=== PATIENT | male | born 1970 | race Hispanic/Latino ===

== ENCOUNTER 2023-03-26 08:32 | Outpatient (CLI) | payer BC, SELFPAY ==
--- NOTE | 2023-03-26 08:37 | EST_ITS ---
Patient Info Name: Gerson Aleman Age: 53 years : 1970 Gender: Male Ht: 70 in Wt: 177 lbs BSA: 2.00 m2 Exam Date: 03/26/2023 9:11 AM Exam Location: [facility] Stress Patient Status: Outpatient Admit Date: 03/26/2023 Staff Ordering Physician: Ant Munguia DO Attending Provider: Ant Munguia DO Exercise Technologist: Kady Azar RDCS Exercise Physician: Ant Munguia DO Exam Type: CA stress test treadmill Study Info Indications R07.9 - Chest pain, unspecified A treadmill exercise stress test was performed. Summary 1. 1. Negative Luis exercise stress test for ischemic ST changes by ECG criteria. 2. 2. Good functional capacity, achieving 10 METs of workload. 3. 3. Appropriate HR response to exercise. 4. 4. Appropriate HR recovery at 1 minute post exercise. 5. 5. No imaging with stress testing. 6. 6. Patient informed of the above results. Protocol: Luis Stress ECG Details Stage: REST Duration (min): 0 min : 46 sec Speed (mph): 0.0 Grade (%): 0 HR (bpm): 68 SBP (mmHg): 106 DBP (mmHg): 76 METS: --- Stage: REST Duration (min): 6 min : 16 sec Speed (mph): 0.0 Grade (%): 0 HR (bpm): 79 SBP (mmHg): 106 DBP (mmHg): 76 METS: --- Stage: STAGE 1 Duration (min): 1 min : 0 sec Speed (mph): 1.7 Grade (%): 10 HR (bpm): 97 SBP (mmHg): 106 DBP (mmHg): 76 METS: --- Stage: STAGE 1 Duration (min): 2 min : 0 sec Speed (mph): 1.7 Grade (%): 10 HR (bpm): 103 SBP (mmHg): 106 DBP (mmHg): 76 METS: --- Stage: STAGE 1 Duration (min): 3 min : 0 sec Speed (mph): 1.7 Grade (%): 10 HR (bpm): 100 SBP (mmHg): 128 DBP (mmHg): 64 METS: --- Stage: STAGE 2 Duration (min): 1 min : 0 sec Speed (mph): 2.5 Grade (%): 12 HR (bpm): 113 SBP (mmHg): 128 DBP (mmHg): 64 METS: --- Stage: STAGE 2 Duration (min): 2 min : 0 sec Speed (mph): 2.5 Grade (%): 12 HR (bpm): 121 SBP (mmHg): 150 DBP (mmHg): 69 METS: --- Stage: STAGE 2 Duration (min): 3 min : 0 sec Speed (mph): 2.5 Grade (%): 12 HR (bpm): 120 SBP (mmHg): 150 DBP (mmHg): 69 METS: --- Stage: STAGE 3 Duration (min): 1 min : 0 sec Speed (mph): 3.4 Grade (%): 14 HR (bpm): 133 SBP (mmHg): 153 DBP (mmHg): 78 METS: --- Stage: STAGE 3 Duration (min): 1 min : 40 sec Speed (mph): 3.4 Grade (%): 14 HR (bpm): 141 SBP (mmHg): 153 DBP (mmHg): 78 METS: --- Stage: RECOVERY Duration (min): 0 min : 19 sec Speed (mph): 1.5 Grade (%): 0 HR (bpm): 138 SBP (mmHg): 153 DBP (mmHg): 78 METS: --- Stage: RECOVERY Duration (min): 1 min : 19 sec Speed (mph): 0.0 Grade (%): 0 HR (bpm): 101 SBP (mmHg): 172 DBP (mmHg): 78 METS: --- Stage: RECOVERY Duration (min): 2 min : 19 sec Speed (mph): 0.0 Grade (%): 0 HR (bpm): 101 SBP (mmHg): 172 DBP (mmHg): 78 METS: --- Stage: RECOVERY Durati
== END 2023-03-26 08:33 | disposition home or self-care (01) ==
LOC: ANHCARD 08:33
PROVIDERS: PCP Physician Assistant; Visit Provider Internal Medicine Cardiovascular Disease
DX: R07.89 Other chest pain (principal)
CPT/HCPCS: 93017

== ENCOUNTER 2024-11-04 15:06 | Outpatient (CLI) | payer BC, SELFPAY ==
--- NOTE | ~2024-11-04 | XR_ITS ---
XR knee LT 3V Ordering provider: Yessi Canseco, TAYLER History: . pain in lt knee FOR 1 MONTH, PAIN MEDIAL SIDE, NKI . Comparison: None. FINDINGS: BONES: No acute fracture or dislocation. JOINT SPACES: Normal. SOFT TISSUES: Normal. IMPRESSION: No acute osseous abnormality left knee. Reviewed, dictated and finalized at location A.
--- OUTSIDE RECORDS SUMMARY | 2024-11-04 17:08 | XMS_ITS | Encounter Summary ---
Author Organization [facility] Address [address] [place] [address] Care Team Providers Care General Assembler Installer Name Role Phone Yessi Canseco PA-C Primary Care Provider Reason for Visit * Reason Onset Date Comments Reschedule Appointment 01/31/2024 Encounter Details Date Type Department Care Team (Late st Contact Info) Description 01/31/2024 Telephone [facility] - Dermatology [address] [place] [address], [facility] [place] [address] Lina Marinelli MD [address] [place] [address] [place] [address] Reschedule Appointment Social History Tobacco Use Types Packs/Day Years Used Date Smoking Tobacco: Former Cigarettes Smokeless Tobacco: Never Alcohol Use Standard Drinks/Week Comments No 0 (1 standard drink = 0.6 oz pur e alcohol) Sex and Gender Information Value Date Recorded Sex Assigned at Not on file 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 Gabriel Bruner * Telephone Encounter - Twyla Wallace - 01/31/2024 9:08 AM CDT Pt called stating he needs to reschedule his appts for patch testing next week. documented in this encounter Plan of Treatment Not on file documented as of this encounter Visit Diagnoses Not on filedocumented in this encounter Care Teams General Assembler Installer Relationship Specialty Start Date End Date Yessi Canseco PA-C [address] [place] [id number] PCP - General Physician Supervisor Line Department 09/18/23 documented as of this encounter
--- OUTSIDE RECORDS SUMMARY | 2024-11-04 17:08 | XMS_ITS | Clinical Summary ---
Author Organization [facility] Address [address] [place] [address] Care Team Providers Care Elevator Inspector Name Role Phone Yessi Canseco PA-C Primary Care Provider Source Comments [facility],non-owned Affiliates and Associated Physician Practices is amultiple site organization consisting of ambulatory clinics and hospital sitesin [place], [place], [place] and [place]. This disclosure is being madepursuant to the Care Everywhere program and may not contain all information available regarding this patient. Last updated 18.[facility] Allergies No known active allergies Medications * Be aware that medications may not be up to date on this document. Alwaysverify current medications with the patient. naproxen (NAPROSYN) 500 MG tablet Take 1 Tab by mouth 2 times daily as needed for Pain. 20 Tab 0 0 Active Additional Information Patient not taking.Reported on 09/18/2023 hydrocodone-acet aminophen (VICODIN) 5-500 MG tablet Take 1-2 Tabs by mouth 4 times daily as needed for Pain. 12 Tab 0 0 Active Additional Information Patient not taking.Reported on 09/18/2023 ivermectin (Stromectol) 3 MG tablet Take 5 and a half tablets now, then repeat in one week. 11 tablet 4 Active Additional Information Patient not taking.Reported on 12/23/2023 cetirizine (ZyrTEC) 5 MG tablet Take 1 (one) tablet by mouth once daily Active triamcinolone acetonide (Kenalog) 0.1 % ointmentIndicati ons:Rash and other nonspecific skin eruption Apply to affected skin on arms and torso twice daily as needed. 30 days supply. 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 Gender Identity Not on file Sexual Orientation Not on file Last Filed Vital Signs Vital Sign Reading Time Taken Comments Blood Pressure 104/79 04/06/2010 7:53 PM CDT Pulse 89 04/06/2010 7:53 PM CDT Temperature 36.4 C (97.5 F) 04/06/2010 7:53 PM CDT Respiratory Rate 16 04/06/2010 7:53 PM CDT Oxygen Saturation 97% 04/06/2010 7:53 PM CDT Inhaled Oxygen Concentration - - Weight 79.4 kg (175 lb) 04/06/2010 7:53 PM CDT Height 180.3 cm (5' 11 ) 04/06/2010 7:53 PM CDT Body Mass Index 24.41 04/06/2010 7:53 PM CDT Plan of Treatment Health Maintenance Due Date Last Done Comments COLOGUARD (AGES 45-75) - COL ON CA SCREENING 1970 COLON MONITORING 1970 COLONOSCOPY - COLON CA SCREENING 1970 CT COLONOGRAPHY - COLON CA SCREENING 1970 Colorectal Cancer Screening 1970 FIT - COLON CA SCREENING 1970 FLEX SIG - COLON CA SCREENING 1970 LIPID TESTING 1970 HIV SCREENING 01/01/1983 HEPATITIS C SCREENING 12/28/1985 DTAP/TDAP/TD VACCINES (1 - Tdap) 01/01/1987 HEPATITIS B VACCINE (1 of 3 - 19+ 3-dose series) 01/01/1987 PNEUMOCOCCAL VACCINE 50+ (1 of 1 - PCV) 01/01/2018 ZOSTER VACCINE (1 of 2) 01/01/2018 COVID-19 VACCINE ( - 2023-2 5 season) 2024 DEPRESSION SCREENING 07/15/2024 INFLUENZA VACCINE (Season Ended) 2025 HIB VACCINE Aged Out No longer eligi ble based on patient's age to complete this topic HPV VACCINE Aged Out No longer eligi ble based on patient's age to complete this topic MENINGOCOCCAL (Group B) VACC INE SHARED DECISION-MAKING Aged Out No longer eligibl e based on patient's age to complete this topic MENINGOCOCCAL GROUPS A/C/Y/W VACCINE Aged Out No longer eligible b ased on patient's age to complete this topic Insurance ANTH Care Teams Elevator Inspector Relationship Specialty Start Date End Date Yessi Canseco PA-C [address] [place] [address] PCP - General Physician Color Control Operator 09/18/23
--- OUTSIDE RECORDS SUMMARY | 2024-11-04 17:08 | XMS_ITS | Clinical Summary ---
Author Organization [facility] Address [address] [place] [id number] Care Team Providers Care Medical Device Assembler Name Role Phone None, Provider MD Primary Care Provider Unavaila ble Allergies No known active allergies Medications No known medications Active Problems Problem Noted Date Diagnosed Date Status post laparoscopic cholecystectomy 020 Resolved Problems Problem Noted Date Diagnosed Date Resolved Date Acute cholecystitis 01/26/2020 02/04/20 20 Acute calculous cholecystitis 01/26/2020 02/04/2020 Family History Medical History Relation Comments Hypertension Brother Diabetes Father Hypertension Father Cancer Mother Relation Status Comments Brother Father Mother Social History Tobacco Use Types Packs/Day Years Used Date Smoking Tobacco: Former Electronic Cigarettes Smokeless Tobacco: Never Alcohol Use Standard Drinks/Week Comments Never 0 (1 standard drink = 0.6 oz pur e alcohol) AUDIT-C Answer Date Recorded Frequency of Alcohol Consumption Never 01/26/2020 Average Number of Drinks Not on file 020 Frequency of Binge Drinking Not on file 01/12 Sex and Gender Information Value Date Recorded Sex Assigned at Not on file Legal Sex Male 3:42 AM CDT Gender Identity Not on file Sexual Orientation Not on file Last Filed Vital Signs Vital Sign Reading Time Taken Comments Blood Pressure 130/70 03/18/2020 1:01 PM CDT Pulse 68 03/18/2020 1:01 PM CDT Temperature 36.9 C (98.5 F) 03/18/2020 1:01 PM CDT Respiratory Rate 99 02/12/2020 1:13 PM CDT Oxygen Saturation 97% 02/02/2020 12:54 PM CDT Inhaled Oxygen Concentration - - Weight 79.8 kg (176 lb) 03/18/2020 1:01 PM CDT Height 180.3 cm (5' 11 ) 03/18/2020 1:01 PM CDT Body Mass Index 24.55 03/18/2020 1:01 PM CDT Plan of Treatment Health Maintenance Due Date Last Done Comments Colorectal Cancer Screening Colonoscopy (10 Years) 1970 Annual Physical 01/01/1971 Hepatitis C 01/01/1986 DTaP, Tdap and Td Vaccines ( 1 - Tdap) 01/01/1987 Hepatitis B Vaccines (1 of 3 - 19+ 3-dose series) 01/01/1987 Pneumococcal Vaccine: 50+ Ye ars (1 of 1 - PCV) 01/01/2018 Zoster Vaccines (1 of 2) 01/01/2018 COVID-19 Vaccine ( - 2023-2 5 season) 2024 Meningococcal B Vaccine Aged Out No l onger eligible based on patient's age to complete this topic Meningococcal Vaccine Aged Out No kalpesh nic eligible based on patient's age to complete this topic RSV Immunizations Under 20 Months Aged Out No longer eligible based on patient's age to complete this topic Goals Goal Patient Goal Type Associated Problems Recent Progress Patient-Stated? Author Return to independent living Lifestyle No Samantha Christensen, PHYSICIAN/OPHTHALMOLOGIST Insurance Advance Directives * Full Code (Latest Code Status on File) Date Activated Date Inactivated Comments 01/26/2020 8:18 AM 01/28/2020 4:50 PM Care Teams Medical Device Assembler Relationship Specialty Start Date End Date None, Provider, PCP - General 01/26/20
--- OUTSIDE RECORDS SUMMARY | 2024-11-04 17:09 | XMS_ITS | Data Portability ---
[facility] Address [address] [place] [address] Care Team Providers Care Insurance Defense Attorney Name Role Phone ANU TANG Primary Care Provider [phone] Assessment No assessment recorded. Plan of Treatment Reminders Order Date Submit Date Provider Last Modified By Organization Details Last Modified Time Details Appointments ACUTE 15 2024 01:30P M TAYLER LEDESMA Not available Not available Not available Lab pathology study - 3mm punch biopsy on R arm 2022 023 [facility], [address] [facility], [address], [place], [address], 05/02/2023 17:11:03 Referral orthopedi c surgeon referral 2024 025 Timothy Stewart MD, [address] [facility] [address], [place], [address], 11/04/2024 14:59:36 physical therapist referral 2024 025 [email or web address] [facility] (Outpatient Physical Therapy), [address], [place], [address], 11/04/2024 14:59:36 Procedures None recorded. Surgeries None recorded. Imaging XR, knee, 3 view 2024 025 [email or web address] [facility] (Rad), [address] [place], [address], 11/04/2024 14:59:36 US, neck, soft tissue [address] (Imaging), [address], [place], [address], 11/04/2024 14:59:36 Medication Orders amoxicill in 500 mg capsule 2023 025 [id number], [address], [place], [place], [id number], 11/04/2024 14:23:21 Patient TargetsNo targets recorded. Patient Instructions Encounter Date Encounter Id Patient Instructions Last Modified By Organization Details Last Modified Time 04/25/2023 [id number] A healthy lifestyle: care instructions Not available 04/25/2023 14:00:56 04/08/2024 [id number] strep throat: care instructions Not available 04/10/2024 07:06:36 11/04/2024 [id number] A healthy lifestyle: care instructions Not available 11/04/2024 15:04:48 Reason for Referral Orthopedic Surgeon Referral for Pain of left knee joint Referring Physician: Anu Tang Cnc Machine Operator, Encounter Date: 11/04/2024 Physical Therapist Referral for Pain of left knee joint Referring Physician: [facility], Encounter Date: 11/04/2024 Results Created Date Observation Date Name Description Value Unit Range Abnormal Flag Note LastModifiedBy Organization Detail LastModifiedTime 04/25/2005/02/2023 PATHO LOGY TARA vargas Mater ial submi tted: . arm - RIGHT ARM 3MM PUNCH BIOPS Y. Modif iers: right Not Available [facility] ([facility]) [address] [facility], [place], [address], 05/02/2023 17:11:03 04/25/2005/02/2023 PATHO LOGY REPOR Glenis vargas [facility] provi ded ICD-1 0: Z76.8 9 Not Available [facility] ([facility]) [address] [facility], [place], [address], 05/02/2023 17:11:03 04/25/2005/02/2023 PATHO LOGY REPOR T . Commen t Diagn osis: RIGHT ARM 3MM PUNCH BIOPS Y: SUBAC LAC COURTE OREILLES SPONG IOTIC DERMA TITIS NOTE: THE DIFFE RENTI AL DIAGN OSIS INCLU SALLIE ALLER GIC CONTA CT DERMA TITIS , NUMMU LAR DERMA TITIS AND ATOPI C DERMA TITIS . DOK 05/02 1700 Local Not Available [facility] ([facility]) [address] [facility], [place], [address], 05/02/2023 17:11:03 04/25/2005/02/2023 PATHO LOGY REPOR T . Commen t: PAS is negat kelechi for funga l organ isms. Not Available [facility] ([facility]) [address] [facility], [place], [address], 05/02/2023 17:11:03 04/25/2005/02/2023 PATHO LOGY REPOR T . Commen t Elect dipika tong d: . Lashell son MD, [place] topat holog ist Not Available [facility] ([facility]) [address] [facility], [place], [address], 05/02/2023 17:11:03 04/25/2005/02/2023 PATHO LOGY REPOR T . Commen t Gross descr iptio n: . 1 Conta iner, forma luke illed , label ed with patie nt ident ifica tion. RIGHT ARM 3MM PUNCH BIOPS Y: 1 PUNCH BIOPS Y OF ZURITA SKIN MEASU RING 0.3 X 0.3 X 0.3 CM. ON THE SURFA CE IS A FLAT DARK ZURITA 0.3 CM LESIO N. THE LESIO N APPEA RS TO INVOL VE THE CESAR N. THE SURGI ALEX CESAR N IS INKED BLUE. IT IS SUBMI TTED ENTIR JULIAN IN CASSE TTE(S ) A1. TYLOR/K YE 04/26 0907 Local Not Available [facility] ([facility]) [address] [facility], [place], [address], 05/02/2023 17:11:03 04/25/2005/02/2023 PATHO LOGY REPOR T . Commen t Patho logis t provi ded ICD-1 0: L25.9 Not Available [facility] ([facility]) [address] [facility], [place], [address], 05/02/2023 17:11:03 04/25/2005/02/2023 PATHO LOGY REPOR T . Commen t CPT . 85102 1, 15797 1 Not Available [facility] ([facility]) [address] [facility], [place], [address], 05/02/2023 17:11:03 03/26/2003/26/2023 fox can cardi olite stres s test (PROC ) No observ ation record ed. [address], [place], [address], 03/26/2023 13:53:24 Result Notes None recorded. Problems Name Problem SNOMED Code Status Onset Date Resolution Date Notes Provider Name and Address Organization Details Recorded Time Dizziness 223393347 Active 2022 TAYLER LEDESMA Attn: Accountin g,[address] [facility], [place], [address], [place] [facility] 3 11:57:02 Dark stools 32896518 Active 2022 TAYLER LEDESMA Attn: Accountin g,[address] [facility], [place], [address], [place] [facility] 3 13:54:46 Tight chest 26522363 Active 2022 TAYLER LEDESMA Attn: Accountin g,[address] [facility], [place], [address], [place] [facility] 3 13:54:47 Pruritic rash 20682833 Active 2022 TAYLER LEDESMA Attn: Accountin g,[address] [facility], [place], [address], [place] [facility] 3 13:54:49 Ex-smoker 1487680 Active 2022 TAYLER LEDESMA Attn: Accountin g,[address] [facility], [place], [address], [place] [facility] 3 13:54:50 Abdominal pain 87905279 Active 2022 TAYLER LEDESMA Attn: Accountin g,[address] [facility], [place], [address], [place] [facility] 3 13:54:53 Hemorrhoids 43555963 Active 2022 TAYLER LEDESMA Attn: Accountmadison g,[address] [facility], [place], [address], [place] [facility] 3 16:10:30 Problem Notes None recorded. Procedures Surgical History Date Name Laterality Status Provider Name and Address Organization Details Recorded Time 3 Punch Biopsy completed TAYLER LEDESMA Attn: Accounting,[address] [facility], [place], [address], [place] [facility] 04/25/2023 13:56:02 3 HEMORRHOIDECT SAURAV, INTERNAL AND EXTERNAL (SURG) completed Gerardo Doshi MD [address] [facility], [place], [address], [place] [facility] 03/12/2023 10:43:18 Imaging Results Imaging Date Name Status LastModified by Organiz ation Details LastModified Time 03/26/2023 lexiscan cardiolite stress test (PROC) completed [address], [place], [address], 03/26/2023 13:53:24 Procedure Notes None recorded. Medical Equipment None Reported. Allergies No known drug allergies Medications Name Sig Start Date Stop Date Status Note LastModified by Organization Details LastModified Time amoxicillin 500 mg capsule TAKE 1 CAPSULE BY MOUTH EVERY 12 HOURS FOR 10 DAYS 11/04 completed Not Available Not Available Not Available triamcinolo ne acetonide 0.1 % topical ointment APPLY TO AFFECTED SKIN ON ARMS AND TORSO TWICE DAILY NEEDED active Not Available Not Available No t Available bisacodyl 5 mg tablet,tim yed release At 2:00 PM the day before the colonosco py, take all 4 tablets of Dulcolax by mouth at one time with 8 ounces of water active Not Available Not Available No t Available polyethylen e glycol 3350 17 gram/dose oral powder In a pitcher, mix entire bottle of Miralax in one 64 ounce bottle of yellow or green Gatorade. Beginning at 5:00 PM the evening before the colonosco py, drink 1 8-ounce glass every 15 minutes until completed . Drink 4 glasses of water after finishing this mixture active Not Available Not Available No t Available oxycodone 5 mg tablet TAKE 1 TABLET BY MOUTH EVERY 4 HOURS NEEDED FOR PAIN active Not Available Not Available No t Available Vitals Date Recorded Body height Body mass index (BMI) Body weight Heart rate Oxygen saturation Oxygen saturation in Arterial blood by Pulse oximetry Systolic blood pressure Diastolic blood pressure Provider Name and Address Organization Details Last Updated DateTime 3 177.8 cm 25.5 kg/m2 54783.9 5 g 84 /min 100 % 100 % 104 mm[Hg] 62 mm[Hg] Shruti Delacruz [place] - [facility] 3 11:23:11 Date Recorded Body height Body mass index (BMI) Body weight Heart rate Body temperature Pain severity - 0-10 verbal numeric rating [Score] - Reported Systolic blood pressure Diastolic blood pressure Provider Name and Address Organization Details Last Updated DateTime 3 177.8 cm 25.7 kg/m2 79248.1 1 g 87 /min 98.1 [degF] 0 126 mm[Hg] 76 mm[Hg] Sarah Guzman MA [facility] 3 10:52:32 Date Recorded Body height Body mass index (BMI) Body weight Heart rate Oxygen saturation Oxygen saturation in Arterial blood by Pulse oximetry Systolic blood pressure Diastolic blood pressure Provider Name and Address Organization Details Last Updated DateTime 3 177.8 cm 26 kg/m2 04027.2 2 g 88 /min 97 % 97 % 130 mm[Hg] 72 mm[Hg] Shruti Delacruz MA [facility] 3 12:16:02 Date Recorded Body height Body mass index (BMI) Body weight Heart rate Oxygen saturation Oxygen saturation in Arterial blood by Pulse oximetry Systolic blood pressure Diastolic blood pressure Provider Name and Address Organization Details Last Updated DateTime 4 177.8 cm 26.8 kg/m2 83341.7 7 g 91 /min 99 % 99 % 127 mm[Hg] 83 mm[Hg] Shruti Delacruz MA [facility] 4 17:06:23 Date Recorded Body height Body mass index (BMI) Body weight Heart rate Oxygen saturation Oxygen saturation in Arterial blood by Pulse oximetry Systolic blood pressure Diastolic blood pressure Provider Name and Address Organization Details Last Updated DateTime 5 177.8 cm 26.8 kg/m2 90739.7 7 g 90 /min 98 % 98 % 125 mm[Hg] 78 mm[Hg] Shruti Delacruz MA [facility] 5 14:26:27 Social History Question Answer Notes LastModified by Organizat ion Details LastModified Time Tobacco Smoking Status Former Smoker Shruti Delacruz MA null, [facility] 01/24/2023 10:26:51 Do You Have An Advance Directive? No Pt. Denies. Information not available 01/24/2023 What Is Your Level Of Alcohol Consumption? None Information not available 01/24/2023 In The 14 Days Before Symptom Onset, Have You Had Close Contact With A Laboratory-confir med COVID-19 While That Case Was Ill? No Information not available 01/24/2023 In The 14 Days Before Symptom Onset, Have You Had Close Contact With A Person Who Is Under Investigation For COVID-19 While That Person Was Ill? No Information not available 01/24/2023 Have You Been To An Area Known To Be High Risk For COVID-19? No Information not available 01/24/2023 What Was The Date Of Your Most Recent Tobacco Screening? 04/08/2024 Information not available 04/10/2024 What Is Your Current Pack Years? 10-19packye ars Information not available 01/24/2023 What Is Your Relationship Status? Information not available 01/24/2023 Do You Have Smoke And Carbon Monoxide Detectors In Your Home? Yes Information not available 01/24/2023 At What Age Did You Start Smoking Tobacco? 11 Smoked 30 Years 1/2 Ppd Quit 2011 Information not available 01/24/2023 Are You Passively Exposed To Smoke? Yes At Work. Information no t available 01/24/2023 Do You Use Any Illicit Or Recreational Drugs? No Information not available 01/24/2023 Has Tobacco Cessation Counseling Been Provided? Yes Information not available 01/24/2023 On What Date Was Tobacco Cessation Counseling Provided? 11/04/2024 Information not available 11/04/2024 How Many Years Have You Smoked Tobacco? 32 Information not available 01/24/2023 Do You Or Have You Ever Used Any Other Forms Of Tobacco Or Nicotine? No Information not available 01/24/2023 Sex: Male Functional Status None recorded. Mental Status None recorded. Family History Relationship Description Onset Age of this Age Resolved Age Notes LastModified by Organization Details LastModified Time Father No current problems or disability Not available 01/24 10:25:29 Father Diabetes mellitus Not available 2022 10:25:43 Mother No current problems or disability Not available 01/24 10:25:29 Mother Malignant tumor of cervix 51 Not available 2022 10:44:34 Mother Malignant tumor of breast 76 Not available 2022 10:44:16 Medical History Condition Response Coronary Artery Disease N Other N High Blood Pressure N Atrial Fibrillation N Kidney or Bladder Problems N Thyroid Problems N GI Problems N Depression N COPD N Blood Clots N Skin Problems N Anemia N Heart Attack ([place]) N Anxiety Disorder N Diabetes N Muscle, Joint, or Bone Problems N Seizures/Epilepsy N Acid Reflux (GERD) N Cancer N Stroke N Asthma N Allergies N High Cholesterol N Hepatitis N Liver Disease N Headaches N Heart Failure N Osteoporosis N Immunizations Vaccine Type Date Status Note Provider Nam e and Address Organization Details Recorded Time Tdap 01/24/2023 completed TAYLER LEDESMA Attn: Accounting,[address] [place], [address], [facility] 01/29/2023 13:52:38 Past Encounters Encounter ID Performer Location Encounter Start Date Encounter Closed Date Diagnosis/Indication Diagnosis SNOMED-CT Code Diagnosis ICD10 Code Diagnosis Note [id number] TAYLER LEDESMA [facility] [address] [place] [address] 01/24/2023 10:13:52 01/24/2023 13:32:20 Ex-smoker 5854863 Z87.891 smoked 1/2 ppd x 32 yearsquit 2011 Pruritic rash 75342811 L 28.2 small papules worse with heat and is pruritic x 2 year and year round. arms, legs, face. hands get red and hot. Adult heal th examination 176180773 Z00.00 - labs- GI referral Dark stools 10049373 R19 .5 black blood in stool x 2 weeks, I'm filling the toilet with blood. He states blood is dark and thick. He has similar episode 21 years ago Tight chest 90597516 R07 .89 knee on my chest 3-4 months when he tried to relax . has happened 4 times. started as pain left arm and then feels chest tightness. when watching tv. Administra tion of diphtheria, pertussis, and tetanus vaccine 650400415 Z23 Abdominal pain 28360891 R10.9 patient denies abdominal pain but on exam he is very tender. hemodynami suzy stable. will order CT scan. ordered labs. GI referral.- ER if sx worsen Dizziness 456686538 R42 recent episodes of dizziness when standing. [id number] BETHANY LESTER [facility] [address] [place] [address] 02/06/2023 12:07:19 02/08/2023 10:03:02 Internal hemorrhoids 14446969 K64.8 patient has exhausted conservati ve treatment measures.P ain since 2001. Unable to reduce hemorrhoid s. Refer to general surgery for consulatio n regarding hemorrhoid ectomy. Melena 4568240 K92.1 EGD and colonoscop y to rule out GI bleedlabwo rk 01/24/23 in chart History of Helicobacter pylori infection 2961113162 0462271 Z86.19 Treated in 2001; never tested for eradicatio nwill test at time of EGD Right uppe r quadrant pain 076359101 R10.11 await scopes; if unremarkab le consider further imaging [id number] Gerardo Doshi MD [facility] [address] [place] [address] 02/14/2023 10:53:05 02/14/2023 14:40:51 Internal hemorrhoids grade III 197329169 K64.2 patient with symptomati c hemorrhoid s despite best medical therapy. In need of resection. Risks include bleeding and sphincter injury. Patient in agreement with plan of care. Will proceed as soon as is convenient . [id number] TAYLER LEDESMA [facility] [address] [place] [address] 03/21/2023 11:12:02 03/27/2023 12:20:48 Hemorrhoids 55172257 K64.9 surgery done 03/11/23. He will return to work 03/25/2023F MLA filled out [id number] Gerardo Doshi MD [facility] [address] [place] [address] 04/23/2023 10:34:54 04/29/2023 10:50:46 Hemorrhoids 75792801 K64.9 s/p excision Postoperative visit 1836 80335 Z09 S/P excision of hemorrhoid s1) continue bowel regimen2) avoid constipati on3) practice good bowel habits as instructed 4) return to office should a problem arise. [id number] TAYLER LEDESMA [facility] [address] [place] [address] 04/25/2023 12:04:34 04/30/2023 11:58:55 Nonsurgical biopsy done 105967420 Z76.89 patient with rash>2 years that is itchy and not controlled with OTC zyretecbx taken today via 3mm punch. area numbed with 2%lido with epi. bleeding stopped with pressure. applied bacitracin and applied band aid. no complicati ons. Overweight 749906427 E66 .3 [id number] TAYLER LEDESMA [facility] [address] [place] [address] 04/08/2024 16:56:49 04/08/2024 17:19:03 Streptococcal sore throat 31240986 J02.0 patient with sore throat and R ear pain x 3 days without cough. Exposed to strep by significan t other. will treat due to exposure and sx. [id number] TAYLER LEDESMA [facility] [address] [place] [address] 11/04/2024 14:18:45 11/04/2024 14:59:35 Pain of left knee joint 1233807292 90468 M25.562 One month of 9/10 pain on his left knee without known mechanism of injury. Ibuprofen and knee brace make it better. Walking and standing make it worse. Full extension of the knee also causes pain. He has limited weight-alayna ring on left knee and refuses to use a cane. This is affecting quality of life and work. exam: Knees: Pain to palpation on medial left knee as well as in extension of knee. There is no swelling or bruising on exam. Negative drawer test. Positive Adrianna test. Finding of lymph node 30 1170599 R59.9 small Palpable lymph node right under his right earlobe that is very painful to touch. His ear canal and tympanic membrane appear normal. I will obtain an ultrasound of his neck to start workup. Overweight 131091140 E66 .3 Health Concerns Section Related Observation LastModified by Organization Detai ls LastModified Time None Recorded Concern Status LastModified by Organization Details LastModified Time None Recorded Advance Directives Directive N: Pt. denies. Payers Encounter Date Sequence Insurance Name Policy Number Policy Trammell Covered Member ID Trammell Member ID Guarantor Name 03/21/2023 2 *SELF PAY* Ra lauri Murphyz 03/21/2023 1 [place] [id number] Gerson Murphyz [id number] Gerson Murphyz 04/23/2023 1 [place] [id number] Gerson Rojasenez [id number] Gerson Rojasenez 04/25/2023 2 *SELF PAY* Ra lauri Rojasenez 04/25/2023 1 [place] [id number] Gerson Murphyz [id number] Gerson Rojasenez 04/08/2024 2 *SELF PAY* Ra lauri Rojasenez 04/08/2024 1 [place] [id number] Gerson Rojasenez [id number] Gerson Rojasenez 11/04/2024 2 *SELF PAY* Ra lauri Rojasenez 11/04/2024 1 [place] [id number] Gerson Murphyz [id number] Gerson Aleman Notes Date Note Type Note Provider Name and Address Organization Details Recorded Time 03/21/2023 text/html Gerson presents for FMLA surgery done 03/11/23 And had pain with sitting and was unable to do job functions. states he is up and down all day long. He will return to work 03/25/2023 TAYLER LEDESMA Attn: Accounting,[address] [facility], [place], [address], [place] [facility] 03/21/2023 16:10:42 04/23/2023 text/html patient s/p hemorrhoidectomy. Doing well. pain is gone, no bleeding, minimal tissue swelling. Gerardo Doshi MD [address] [place], [address], [facility] 04/23/2023 10:59:09 04/25/2023 text/html Gerson is here f or skin bx denies allergy to epi or lidocaine. rash has been . OTC allergy medication does not help. appears papular and always pruritic. that is all year round. Sun/heat makes it worse. TAYLER LEDESMA Attn: Accounting,[address] [facility], [place], [address], [facility] 04/25/2023 14:03:08 04/08/2024 text/html Gerson is here f or strep He has had three days of sore throat and R ear painSignificant other diagnosed with strep throat yesterday TAYLER LEDESMA Attn: Accounting,[address] [facility], [place], [address], [facility] 04/10/2024 07:07:46 11/04/2024 text/html Dagoberto is here fo r knee pain and wanting ortho referral also c/o of R ear pain ine month of knee pain no known rema. was walking and went to take a step and and gave out on him. pain is daily . the onger he stirs ot stands it gets wrose I cant even minner knee hurts. waking him up. 800mg once per day. pain 9/10 and bring it do 10. sreaightening out hurts mosre. knee brace helps some. TAYLER LEDESMA Attn: Accounting,[address] [facility], [place], [address], [facility] 11/04/2024 15:06:04
--- OUTSIDE RECORDS SUMMARY | 2024-11-04 17:09 | XMS_ITS | Continuity of Care Document ---
Author Organization [facility] Address [address] [place] [address] Care Team Providers Care Wraparound Facilitator Name Role Phone ANU TANG Primary Care Provider Assessment No assessment recorded. Plan of Treatment Reminders Order Date Submit Date Provider Last Modified By Organization Details Last Modified Time Details Appointments ACUTE 15 2024 01:30P TAYLER COON Not available Not available Not available Lab None recorded. Referral orthopedi c surgeon referral 2024 025 [email or web address] Timothy Stewart MD, [address], [facility] [address], [place], [address], 11/04/2024 14:59:36 physical therapist referral [address] (Outpatient Physical Therapy), [address], [place], [address], 11/04/2024 14:59:36 Procedures None recorded. Surgeries None recorded. Imaging XR, knee, 3 view [address] (Rad), [address] [place], [address], 11/04/2024 14:59:36 US, neck, soft tissue [email or web address] (Imaging), [address], [place], [address], 11/04/2024 14:59:36 Medication Orders None recorded. Patient TargetsNo targets recorded. Patient Instructions Encounter Date Encounter Id Patient Instructions Last Modified By Organization Details Last Modified Time 11/04/2024 [id number] A healthy lifestyle: care instructions [email or web address] Not available 11/04/2024 15:04:48 Reason for Referral Orthopedic Surgeon Referral for Pain of left knee joint Referring Physician: Anu Tang Sprinkler Fitter Apprentice, Encounter Date: 11/04/2024 Physical Therapist Referral for Pain of left knee joint Referring Physician: Anu Tang Sprinkler Fitter Apprentice, Encounter Date: 11/04/2024 Problems Name Problem SNOMED Code Status Onset Date Resolution Date Notes Provider Name and Address Organization Details Recorded Time Dizziness 740790549 Active 2022 TAYLER LEDESMA Attn: Accountmadison g,[address] [facility], [place], [address], [place] - [facility] 3 11:57:02 Dark stools 73225334 Active 2022 TAYLER LEDESMA Attn: Accountin g,[address], [place], [address], [place] [facility] 3 13:54:46 Tight chest 54625296 Active 2022 TAYLER LEDESMA Attn: Accountin g,[address], [place], [address], [place] [facility] 3 13:54:47 Pruritic rash 13920056 Active 2022 TAYLER LEDESMA Attn: Accountin g,[address], [place], [address], [place] [facility] 3 13:54:49 Ex-smoker 7749784 Active 2022 TAYLER LEDESMA Attn: Accountin g,[address] [facility], [place], [address], [place] [facility] 3 13:54:50 Abdominal pain 65800441 Active 2022 TAYLER LEDESMA Attn: Accountin g,[address] [facility], [place], [address], [place] - [facility] 3 13:54:53 Hemorrhoids 64855257 Active 2022 TAYLER LEDESMA Attn: Jacob g,[address] [facility], [place], [address], [place] - [facility] 3 16:10:30 Problem Notes None recorded. Procedures Surgical History Date Name Laterality Status Provider Name and Address Organization Details Recorded Time 3 Punch Biopsy completed TAYLER LEDESMA Attn: Accounting, [facility], [place], [address], [facility] - [facility] 04/25/2023 13:56:02 3 HEMORRHOIDECT SAURAV, INTERNAL AND EXTERNAL (SURG) completed Gerardo Doshi MD [address] [place], [address], [facility] - [facility] 03/12/2023 10:43:18 Imaging Results None recorded. Procedure Notes None recorded. Medical Equipment None [...] Updated DateTime 5 177.8 cm 26.8 kg/m2 72973.7 7 g 90 /min 98 % 98 % 125 mm[Hg] 78 mm[Hg] Shruti Delacruz [place] - [facility] 5 14:26:27 Social History Question Answer Notes LastModified by Organizat ion Details LastModified Time Tobacco Smoking Status Former Smoker Shruti Delacruz MA null, [place] - [facility] 01/24/2023 10:26:51 Do You Have An Advance [...] Skin Problems N Anemia N Heart Attack ([place]) N Anxiety Disorder N Diabetes N Muscle, [...] 01/24/2023 completed TAYLER LEDESMA Attn: Accounting,[address] [place], [address], [facility] - [facility] 01/29/2023 13:52:38 Past Encounters Encounter ID Performer Location Encounter Start Date Encounter Closed Date Diagnosis/Indication Diagnosis SNOMED-CT Code Diagnosis ICD10 Code Diagnosis Note [id number] TAYLER LEDESMA [facility] [address] [place] [address] 11/04/2024 14:18:45 11/04/2024 14:59:35 Pain of left knee joint [id number] 49870 M25.562 One month of 9/10 pain on [...] Adrianna test. Finding of lymph node 30 0003512 R59.9 small Palpable lymph node right under his right earlobe that is very painful to touch. His ear canal and tympanic membrane appear normal. I will obtain an ultrasound of his neck to start workup. Overweight [id number] E66 .3 Health Concerns Section Related Observation LastModified by Organization Detai ls LastModified Time None Recorded Concern Status LastModified by Organization Details LastModified Time None Recorded Payers Encounter Date Sequence Insurance Name Policy Number Policy Trammell Covered Member ID Trammell Member ID Guarantor Name 11/04/2024 2 *SELF PAY* lauri Ash 11/04/2024 1 [employer] [id number] Gerson Ash [id number] Gerson Ash Notes Date Note Type Note Provider Name and Address Organization Details Recorded Time 11/04/2024 text/html Dagoberto is here fo r [...] day. pain 9/10 and bring it do 6/10. sreaightening out hurts mosre. knee brace helps some. TAYLER LEDESMA Attn: Accounting,[address] [place], [address], [facility] - [facility] 11/04/2024 15:06:04
== END 2024-11-04 15:07 | disposition home or self-care (01) ==
PROVIDERS: PCP Physician Assistant; Visit Provider Physician Assistant
DX: M25.562 Pain in left knee (principal)
CPT/HCPCS: 73562

== ENCOUNTER 2024-11-11 10:15 | Outpatient (CLI) | payer BC, SELFPAY ==
--- NOTE | ~2024-11-11 | US_ITS ---
EXAMINATION: US soft tissue head and neck DATE: 11/11/2024 10:34 INDICATION: Palpable lymph node posterior to the right ear TECHNIQUE: Multiple grayscale and Doppler ultrasound images of the right retroauricular region of [facility] cern were obtained. COMPARISON: None FINDINGS: There are 3 normal-sized and normal-appearing ovoid hypoechoic lymph nodes at the right retroauricula r region of concern. The largest measures 7 x 6 x 4 mm, the next largest measures 4 x 4 x 2 mm the sm allest measures 3 x 2 x 1 mm. No abnormal masses or fluid collections identified. IMPRESSION: 1. 3 normal-sized right retroauricular lymph nodes at the region of concern. Reviewed, dictated and finalized at location A.
== END 2024-11-11 10:16 | disposition home or self-care (01) ==
PROVIDERS: PCP Physician Assistant; Visit Provider Physician Assistant
DX: R59.9 Enlarged lymph nodes, unspecified (principal)
CPT/HCPCS: 76536

== ENCOUNTER 2024-12-11 10:04 | Outpatient (CLI) | payer BC, SELFPAY ==
--- NOTE | ~2024-12-11 | MR_ITS ---
MRI of the left knee Clinical history: Pain Technique: Coronal proton density and proton density-weighted images, sagittal proton-density and T2 fat-sat images, and axial proton-density fat-saturated images were acquired. Findings: Anterior and posterior cruciate ligaments are intact. Medial collateral ligament and the la teral collateral ligament complex are intact. Popliteus tendon is intact. There is complex tearing of the posterior horn and body of the medial meniscus, with vertical and obl ique/horizontal tear components. Lateral meniscus is intact, without evidence of tear. Articular cartilage is well preserved throughout the knee. Bone marrow signals are unremarkable. Extensor mechanism is intact. There is minimal joint effusion. No Monk's cyst. Impression: Complex tearing of the posterior horn and body of the medial meniscus, as detailed above. Reviewed, dictated and finalized at location M. Impression: Complex tearing of the posterior horn and body of the medial meniscus, as lenny led above.
== END 2024-12-11 10:05 | disposition home or self-care (01) ==
PROVIDERS: PCP Physician Assistant; Visit Provider Orthopaedic Surgery
DX: S83.232A Complex tear of medial meniscus, current injury, left knee, initial encounter (principal); X58.XXXA Exposure to other specified factors, initial encounter
CPT/HCPCS: 73721